=== PATIENT | female | born 1995 | race Caucasian/White ===

== ENCOUNTER 2017-04-20 15:46 | Emergency (ER) | payer OTHER ==
[2017-04-20 15:53] VITALS: BP 124/74; PULSE 104; TEMP 99.3; BMI 33.3
--- NOTE | 2017-04-20 15:53 | PDOC ---
Rapid Medical Evaluation Chief Complaint: Pain, Acute Medical Evaluation: Allergies Allergy/AdvReac Type Severity Reaction Status Date / Time No Known Allergies Allergy Verified 04/20/17 15:50 04/20/17 15:51 I have performed a brief in-person evaluation of this patient. The patient presents with a chief complaint of: n/v/d since yesterday Pertinent physical exam findings:Tachy to 104 w/ low grade fever of 99.3 w/ + ttp to upper abdomen I have ordered the following:cbc/chem/lipase/ua/upreg The patient will proceed to the ED for further evaluation. 04/20/17 15:53 04/20/17 15:54
[2017-04-20 16:22] LABS: BASOPHIL 0.4 % (0-2.0); EOSINOPHIL 0.5 % (0-4.5); MCH 28.5 pg (25.7-33.7); MCHC 32.4 g/dl (32.0-36.0); MEAN CELL VOLUME 87.9 fl (80-96); MEAN PLT VOLUME 10.2 fl (7.5-11.1); NEUTROPHILS 85.8 % (42.8-82.8); PLATELET COUNT 212 K/MM3 (134-434); RDW 15.1 % (11.6-15.6); WHITE BLOOD COUNT 18.7 K/mm3 (4.0-10.0)
[2017-04-20 16:41] LABS: URINE APPEARANCE CLEAR; URINE BILIRUBIN NEGATIVE (NEGATIVE); URINE COLOR YELLOW; URINE GLUCOSE (UA) NEGATIVE (NEGATIVE); URINE KETONE NEGATIVE (NEGATIVE); URINE NITRITE NEGATIVE (NEGATIVE); URINE PROTEIN NEGATIVE (NEGATIVE); URINE UROBILINOGEN 2.0 E.U/dl E.U./dl (0.2-1.0)
[2017-04-20 16:47] LABS: ALBUMIN 3.4 g/dl (3.4-5.0); ALK PHOS 88 U/L (45-117); ANION GAP 7 (8-16); BILIRUBIN,TOTAL 0.5 mg/dL (0.2-1.0); CALCIUM 9.2 mg/dL (8.5-10.1); CO2 27 mmol/L (21-32); CREATININE 0.7 mg/dL (0.55-1.02); GLUCOSE,RANDOM 91 mg/dL (74-106); SGOT/AST 13 U/L (15-37); SGPT/ALT 17 U/L (12-78)
[2017-04-20 17:08] LABS: URINE BLOOD 2+ (NEGATIVE); URINE LEUK ESTERASE 1+ (NEGATIVE)
[2017-04-20 17:10] LABS: URINE MUCUS FEW; URINE RBC 1 /hpf (0-3); URINE WBC 8 /hpf (3-5)
[2017-04-20] MEDS ORDERED: ONDANSETRON 4 MG/2 ML VIAL IVPB ONE (20:01)
[2017-04-20] MEDS ORDERED: SODIUM CHLORIDE 1,000 ML IV STA ×2 (20:01→21:49)
[2017-04-20] MEDS ORDERED: ONDANSETRON 4 MG/2 ML VIAL ONE (20:13)
--- NOTE | 2017-04-20 21:28 | PDOC ---
History of Present Illness - General Chief Complaint: Pain, Acute Stated Complaint: ABD/ CHEST PAIN Time Seen by Provider: 04/20/17 15:55 History Source: Patient Exam Limitations: No Limitations - History of Present Illness Travel History: No Initial Comments: 04/20/17 21:23 21yo Female patient w/ PmHx: Asthma presents to ED c/o persistent vomiting since yesterday. Patient states she has been unable to tolerate po fluids/ solids. Patient also has c/o chest pain/ back pain/ lower abdominal, sore throat , bilateral ear pain with low grade temp (100.3). LNMP: Unknown. Reports IUD- non hormonal. She denies any other complaints at this time. Timing/Duration: reports: getting worse Quality: reports: moderate Abdominal Pain Onset Location: reports: RLQ, LLQ, epigastric Pain Radiation: reports: back Activities at Onset: reports: none Treatment Prior to Arrive: worse with: analgesics, antacids, cold pack, heat, laxative, enema, other Aggravating Factors: worse with: None, Defecation, Eating, Emotional upset, Exertion, [place], Movement, Voiding, Change in position Alleviating Factors: worse with: None, Belching, Shallow Breathing, Defecation, Eating, Holding Breath, Passing Gas, Change in Position, Rest, Voiding, Vomiting Past History - Travel Traveled outside of the country in the last 30 days: No Close contact w/someone who was outside of country & ill: No - Past Medical History Allergies/Adverse Reactions: Allergies Allergy/AdvReac Type Severity Reaction Status Date / Time No Known Allergies Allergy Verified 04/20/17 15:50 Home Medications: Ambulatory Orders NK [No Known Home Medication] 08/16/16 Asthma: Yes Cancer: No Cardiac Disorders: No Diabetes: No HTN: No Suicide Attempt (Hx): No Seizures: No Thyroid Disease: No - Reproductive History (#): 1 Para: 0 Therapeutic (s) & number: No Spontaneous : 0 - Immunization History Immunization Up to Date: Yes - Psycho/Social/Smoking Cessation Hx Anxiety: No Suicidal Ideation: No Smoking Status: No Smoking History: Never smoked Have you smoked in the past 12 months: No Number of Cigarettes Smoked Daily: 0 Information on smoking cessation initiated: No Hx Alcohol Use: No Drug/Substance Use Hx: No Substance Use Type: None Hx Substance Use Treatment: No Abd/GI Specific PMHX - Complaint Specific PMHX Colitis: No Diverticulitis: No Gall Bladder Disease: No GERD: No Hepatitis: No Irritable Bowel Synd (IBS): No Pancreatitis: No GI Ulcer Disease: No Review of Systems - Review of Systems Able to Perform ROS?: Yes Is the patient limited Palestinian proficient: No Constitutional: Yes: Fever. No: Chills HEENTM: Yes: Ear Pain, Throat Pain. No: Throat Swelling, Mouth Pain, Difficulty Swallowing, Mouth Swelling Respiratory: Yes: Cough. No: Shortness of Breath, Wheezing Cardiac (ROS): No: Chest Pain, Palpitations, Syncope, Chest Tightness ABD/GI: Yes: Diarrhea, Nausea, Poor Fluid Intake, Vomiting, Abdominal cramping ( RLQ-LLQ). No: Difficulty Swallowing, Poor Appetite, Rectal Bleeding : No: Burning, Dysuria, Flank Pain, Hematuria Musculoskeletal: Yes: Back Pain Integumentary: No: Bruising, Erythema, Rash Neurological: No: Headache, Seizure, Ataxia, Dizziness All Other Systems: Reviewed and Negative *Physical Exam - Vital Signs Last Vital Signs Temp Pulse Resp BP Pulse Ox 99.3 F 104 H 18 124/74 100 04/20/17 15:51 04/20/17 15:51 04/20/17 15:51 04/20/17 15:51 04/20/17 15:51 - Physical Exam General Appearance: Yes: Nourished, Appropriately Dressed. No: Apparent Distress, Mild Distress, Moderate Distress, Severe Distress HEENT: positive: EOMI, DOMINIC, Normal ENT Inspection, Normal Voice, Symmetrical, TMs Normal, Pharyngeal Erythema (Injected), Tonsillar Erythema (Severe). negative: Pharynx Normal, Tonsillar Exudate, Nasal Congestion, Rhinorrhea, Sinus Tenderness, TM Bulging, TM Dull, TM Erythema, Excessive drooling Neck: positive: Trachea midline, Normal Thyroid, Supple. negative: Decreased range of motion, Stridor, Lymphadenopathy (R), Lymphadenopathy (L), Rigidity Respiratory/Chest: positive: Lungs Clear, Normal Breath Sounds. negative: Chest Tender, Respiratory Distress, Accessory Muscle Use, Labored Respiration, Rapid RR, Stridor, Wheezing Cardiovascular: positive: Regular Rhythm, Regular Rate Gastrointestinal/Abdominal: positive: Normal Bowel Sounds, Tender (Epigastric), Soft, Tenderness. negative: Distended, Guarding, Rebound Musculoskeletal: positive: Normal Inspection. negative: CVA Tenderness, Vertebral Tenderness Extremity: positive: Normal Capillary Refill, Normal Inspection, Normal Range of Motion. 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 II-XII NML intact, Fully Oriented, Alert, Normal Mood/ Affect, Normal Response, Motor Strength /5 ED Treatment Course - LABORATORY CBC & Chemistry Diagram: 04/20/17 16:00 04/20/17 16:00 - ADDITIONAL ORDERS Additional order review: Laboratory Results 04/20/17 04/20/17 16:00 16:00 Sodium 137 Potassium 4.5 Chloride 103 Carbon Dioxide 27 Anion Gap 7 L BUN 8 D Creatinine 0.7 D Creat Clearance w eGFR > 60 Random Glucose 91 D Calcium 9.2 Total Bilirubin 0.5 AST 13 L ALT 17 D Alkaline Phosphatase 88 D Total Protein 8.0 Albumin 3.4 Lipase 93 Urine Color Yellow Urine Appearance Clear Urine pH 7.0 D Ur Specific [place] 1.020 Urine Protein Negative Urine Glucose (UA) Negative Urine Ketones Negative Urine Blood 2+ H Urine Nitrite Negative Urine Bilirubin Negative Urine Urobilinogen 2.0 e.u/dl H Ur Leukocyte Esterase 1+ H D Urine RBC 1 Urine WBC 8 Ur Epithelial Cells Few Urine Mucus Few Urine HCG, Qual Negative 04/20/17 16:00 RBC 4.72 D MCV 87.9 MCHC 32.4 RDW 15.1 D MPV 10.2 Neutrophils % 85.8 H D Lymphocytes % 7.3 L D Monocytes % 6.0 Eosinophils % 0.5 Basophils % 0.4 - RADIOLOGY Radiology Studies Ordered: Category Date Time Status ABDOMEN & PELVIS CT WITH CONTR [CT] Stat CT Scan 04/20/17 20:01 Taken ABDOMEN US -LIMITED [US] Stat Ultrasound 04/20/17 20:01 Ordered - Medications Given in the ED: ED Medications Discontinued Medications Generic Name Dose Route Start Last Admin Trade Name Freq PRN Reason Stop Dose Admin Sodium Chloride 1,000 mls @ 1,000 mls/hr 04/20/17 20:01 04/20/17 20:28 Normal Saline - IV 04/20/17 21:00 1,000 mls/hr ASDIR STA Administration Ondansetron HCl 8 mg 04/20/17 20:01 04/20/17 20:25 Zofran Injection IVPB 04/20/17 20:02 8 mg ONCE ONE Administration Medical Decision Making - Medical Decision Making 04/20/17 23:40 + Strep, WBC 18 *DC/Admit/Observation/Transfer Diagnosis at time of Disposition: Strep pharyngitis - Discharge Dispostion Disposition: HOME Condition at time of disposition: Improved Admit: No - Patient Instructions Printed Discharge Instructions: DI for Strep Throat Additional Instructions: FOLLOW UP WITH YOUR DOCTOR NEEDED. CALL TO SCHEDULE APPOINTMENT. TYLENOL OR MOTRIN FOR PAIN NEEDED. Print Language: [place] ISLANDER - Post Discharge Activity Work/School Note: Back to Work
--- NOTE | 2017-04-20 21:31 | PDOC ---
*Physical Exam - Vital Signs Last Vital Signs Temp Pulse Resp BP Pulse Ox 99.3 F 104 H 18 124/74 100 04/20/17 15:51 04/20/17 15:51 04/20/17 15:51 04/20/17 15:51 04/20/17 15:51 ED Treatment Course - LABORATORY CBC & Chemistry Diagram: 04/20/17 16:00 04/20/17 16:00 - ADDITIONAL ORDERS Additional order review: Laboratory Results 04/20/17 04/20/17 16:00 16:00 Sodium 137 Potassium 4.5 Chloride 103 Carbon Dioxide 27 Anion Gap 7 L BUN 8 D Creatinine 0.7 D Creat Clearance w eGFR > 60 Random Glucose 91 D Calcium 9.2 Total Bilirubin 0.5 AST 13 L ALT 17 D Alkaline Phosphatase 88 D Total Protein 8.0 Albumin 3.4 Lipase 93 Urine Color Yellow Urine Appearance Clear Urine pH 7.0 D Ur Specific [place] 1.020 Urine Protein Negative Urine Glucose (UA) Negative Urine Ketones Negative Urine Blood 2+ H Urine Nitrite Negative Urine Bilirubin Negative Urine Urobilinogen 2.0 e.u/dl H Ur Leukocyte Esterase 1+ H D Urine RBC 1 Urine WBC 8 Ur Epithelial Cells Few Urine Mucus Few Urine HCG, Qual Negative 04/20/17 20:30 Group A Strep Rapid Antigen - Final Throat 04/20/17 16:00 RBC 4.72 D MCV 87.9 MCHC 32.4 RDW 15.1 D MPV 10.2 Neutrophils % 85.8 H D Lymphocytes % 7.3 L D Monocytes % 6.0 Eosinophils % 0.5 Basophils % 0.4 - Medications Given in the ED: ED Medications Discontinued Medications Generic Name Dose Route Start Last Admin Trade Name Tayoq PRN Reason Stop Dose Admin Sodium Chloride 1,000 mls @ 1,000 mls/hr 04/20/17 20:01 04/20/17 20:28 Normal Saline - IV 04/20/17 21:00 1,000 mls/hr ASDIR STA Administration Ondansetron HCl 8 mg 04/20/17 20:01 04/20/17 20:25 Zofran Injection IVPB 04/20/17 20:02 8 mg ONCE ONE Administration Medical Decision Making - Medical Decision Making 04/20/17 21:30 agree with care from JELENA Crisostomo *DC/Admit/Observation/Transfer Diagnosis at time of Disposition: Strep pharyngitis - Referrals Referrals: Devonte Browning MD [Primary Care Provider] - - Patient Instructions Printed Discharge Instructions: DI for Strep Throat Additional Instructions: FOLLOW UP WITH YOUR DOCTOR NEEDED. CALL TO SCHEDULE APPOINTMENT. TYLENOL OR MOTRIN FOR PAIN NEEDED. Print Language: VIET[place]ESE - Post Discharge Activity Work/School Note: Back to Work
[2017-04-20] MEDS ORDERED: ACETAMINOPHEN 325 MG TABLET (FP) ONE (22:07)
[2017-04-20] MEDS ORDERED: ACETAMINOPHEN 325 MG TABLET (FP) PO ONE (22:09)
[2017-04-20] MEDS ORDERED: PENICILLIN V POTASSIUM 500 MG TABLET PO ONE (23:39)
[2017-04-20] MEDS ORDERED: KETOROLAC TROMETHAMINE 30 MG/1 ML VIAL IVPUSH ONE (23:39)
[2017-04-20] MEDS ORDERED: PENICILLIN G BENZATHINE 1,200,000 UNIT/2 ML PFS IM ONE (23:43)
[2017-04-21] MEDS ORDERED: KETOROLAC TROMETHAMINE 30 MG/1 ML VIAL ONE (00:04)
[2017-04-21] MEDS ORDERED: PENICILLIN G BENZATHINE 2,400,000 UNIT/4 ML PFS ONE (00:05)
== END 2017-04-21 01:20 | disposition home or self-care (01) ==
LOC: JER 15:46
PROC: 3E0337Z Introduction of Electrolytic and Water Balance Substance into Peripheral Vein, Percutaneous Approach (ICD-10-PCS; principal; 2017-04-20)
PROC: 3E033GC Introduction of Other Therapeutic Substance into Peripheral Vein, Percutaneous Approach (ICD-10-PCS; 2017-04-20)
PROC: 3E0333Z Introduction of Anti-inflammatory into Peripheral Vein, Percutaneous Approach (ICD-10-PCS; 2017-04-20)
PROC: 3E02329 Introduction of Other Anti-infective into Muscle, Percutaneous Approach (ICD-10-PCS; 2017-04-20)
DX: J02.0 Streptococcal pharyngitis (principal); B95.0 Streptococcus, group A, as the cause of diseases classified elsewhere
CPT/HCPCS: 36415; 74177-TC; 76705-TC; 80053; 81003; 81015; 83690; 84703; 85025; 87070; 87077; 87430; 96361; 96372; 96374; 96375; 99283-25

== ENCOUNTER 2019-01-08 05:58 | Emergency (ER) | payer OTHER ==
[2019-01-08 06:26] VITALS: BMI 33.3
[2019-01-08] MEDS ORDERED: SODIUM CHLORIDE 1,000 ML IV STA ×2 (07:24→09:02)
[2019-01-08] MEDS ORDERED: ACETAMINOPHEN 1000 MG/100 ML VIAL (NON FORMULARY) IVPB ONE (07:24)
[2019-01-08] MEDS ORDERED: ONDANSETRON 4 MG/2 ML VIAL IVPUSH ONE (07:24)
--- NOTE | 2019-01-08 07:24 | PDOC ---
History of Present Illness - General Chief Complaint: Nausea/Vomiting Stated Complaint: N/V, ABD PAIN, 7 WKS Time Seen by Provider: 01/08/19 07:04 History Source: Patient Exam Limitations: No Limitations - History of Present Illness Initial Comments: 01/08/19 10:57 Patient is a 52-year-old female currently 7 weeks with past medical history of asthma, who presents to the emergency department today for 4 days of nausea, vomiting and diarrhea. Patient states that she also has lower abdominal crampin. She states that her son had similar symptoms last week and also had 4 days of nausea vomiting and diarrhea. Her mother is here as well, sick with similar symptoms. Denies fevers, chills, earache, sore throat, shortness of breath, difficulty breathing, cough, constipation, frequency, urgency and hematuria, vaginal bleeding. Past History - Travel Traveled outside of the country in the last 30 days: No Close contact w/someone who was outside of country & ill: No - Past Medical History Allergies/Adverse Reactions: Allergies Allergy/AdvReac Type Severity Reaction Status Date / Time No Known Allergies Allergy Verified 01/08/19 06:24 Home Medications: Ambulatory Orders NK [No Known Home Medication] 08/16/16 Asthma: Yes Cancer: No Cardiac Disorders: No Diabetes: No HTN: No Seizures: No Thyroid Disease: No - Reproductive History (#): 1 Para: 0 Therapeutic (s) & number: No Spontaneous : 0 - Immunization History Immunization Up to Date: Yes - Suicide/Smoking/Psychosocial Hx Smoking Status: No Smoking History: Never smoked Have you smoked in the past 12 months: No Number of Cigarettes Smoked Daily: 0 Information on smoking cessation initiated: No Hx Alcohol Use: No Drug/Substance Use Hx: No Substance Use Type: None Hx Substance Use Treatment: No Review of Systems - Review of Systems Able to Perform ROS?: Yes Comments:: 01/08/19 10:58 CONSTITUTIONAL: Absent: fever, chills, diaphoresis, generalized weakness, malaise, loss of appetite HEENT: Absent: rhinorrhea, nasal congestion, throat pain, throat swelling, difficulty swallowing, mouth swelling, ear pain, eye pain, visual Changes CARDIOVASCULAR: Absent: chest pain, loss of consciousness, palpitations, irregular heart rate, peripheral edema RESPIRATORY: Absent: cough, shortness of breath, dyspnea with exertion, orthopnea, wheezing, stridor, hemoptysis GASTROINTESTINAL: Present: abdominal cramping, nausea, diarrhea, vomiting Absent: abdominal distension, constipation, melena, hematochezia GENITOURINARY: Absent: dysuria, frequency, urgency, hesitancy, hematuria, flank pain, genital pain MUSCULOSKELETAL: Absent: myalgia, arthralgia, joint swelling SKIN: Absent: rash, itching, pallor HEMATOLOGIC/IMMUNOLOGIC: Absent: easy bleeding, easy bruising, lymphadenopathy, frequent infections ENDOCRINE: Absent: unexplained weight gain, unexplained weight loss, heat intolerance, cold intolerance NEUROLOGIC: Absent: headache, focal weakness or paresthesias, dizziness, unsteady gait, seizure, mental status changes, bladder or bowel incontinence PSYCHIATRIC: Absent: anxiety, depression, suicidal or homicidal ideation, hallucinations. Is the patient limited Wolof proficient: No *Physical Exam - Vital Signs Last Vital Signs Temp Pulse Resp BP Pulse Ox 98.6 F 70 18 115/63 99 01/08/19 06:25 01/08/19 06:25 01/08/19 06:25 01/08/19 06:25 01/08/19 06:25 - Physical Exam Comments: 01/08/19 11:00 GENERAL: Well developed, well nourished. Awake and alert. No acute distress. HEENT: Normocephalic, atraumatic. PERRLA, EOMI. No conjunctival pallor. Sclera are non- icteric. Moist mucous membranes. Oropharynx is clear. NECK: Supple. Full ROM. No JVD. Carotid pulses 2+ and symmetric, without bruits. No thyromegaly. No lymphadenopathy. CARDIOVASCULAR: Regular rate and rhythm. No murmurs, rubs, or gallops. Distal pulses are 2+ and symmetric. PULMONARY: No evidence of respiratory distress. Lungs clear to auscultation bilaterally. No wheezing, rales or rhonchi. ABDOMINAL: Discomfort to LLQ, suprapubic region. Soft. Non-tender. Non-distended. No rebound or guarding. No organomegaly. Normoactive bowel sounds. MUSCULOSKELETAL Normal range of motion at all joints. No bony deformities or tenderness. No CVA tenderness. EXTREMITIES: No cyanosis. No clubbing. No edema. No calf tenderness. SKIN: Warm and dry. Normal capillary refill. No rashes. No jaundice. NEUROLOGICAL: Alert, awake, appropriate. Cranial nerves 2-12 intact. No deficits to light touch and temperature in face, upper extremities and lower extremities. No motor deficits in the in face, upper extremities and lower extremities. Normoreflexic in the upper and lower extremities. Normal speech. Toes are down- going bilaterally. Gait is normal without ataxia. PSYCHIATRIC: Cooperative. Good eye contact. Appropriate mood and affect. Moderate Sedation - Procedure Monitoring Vital Signs: Procedure Monitoring Vital Signs Temperature 98.6 F 01/08/19 06:25 Pulse Rate 70 01/08/19 06:25 Respiratory Rate 18 01/08/19 06:25 Blood Pressure 115/63 01/08/19 06:25 O2 Sat by Pulse Oximetry (%) 99 01/08/19 06:25 ED Treatment Course - LABORATORY CBC & Chemistry Diagram: 01/08/19 07:31 01/08/19 07:31 Medical Decision Making - Medical Decision Making 01/08/19 11:14 Patient is a 23-year-old female currently 7 weeks who presents to the emergency department with nausea, vomiting and diarrhea for the last 4 days. Patient's family members with similar symptoms. On exam patient with lower abdominal cramping. Labs, urine, transvaginal ultrasound ordered. Medication for nausea and vomiting and IV fluids placed. Urine is negative for infection. Repeat abdominal exam with no pain. Transvaginal ultrasound shows an intrauterine with a heart rate of 144. Patient with a simple cyst on the right ovary. Also with a subchorionic hemorrhage. Patient made aware of findings. Patient reports feeling much better after medication and fluids. We'll discharge home with OB follow-up. I discussed the physical exam findings, ancillary test results and final diagnoses with the patient. I answered all of the patient's questions. The patient was satisfied with the care received and felt comfortable with the discharge plan and treatment plan. The Patient agrees to follow up with the primary care physician/specialist within 24-72 hours. Return precautions were given. *DC/Admit/Observation/Transfer Diagnosis at time of Disposition: Nausea & vomiting Qualifiers: Vomiting type: unspecified Vomiting Intractability: non-intractable Qualified Code(s): R11.2 - Nausea with vomiting, unspecified - Discharge Dispostion Disposition: HOME Condition at time of disposition: Stable Decision to Admit order: No - Referrals Referrals: Clau Bergman MD [Primary Care Provider] - - Patient Instructions Printed Discharge Instructions: DI for Vomiting -- Adult Additional Instructions: You were evaluated for her nausea and vomiting today. Your lab work was normal. Your ultrasound showed that the baby has heart rate 144. Avoid all dairy products until 48 hours after the vomiting/diarrhea has resolved. Eat a bland diet including apple sauce, toast, bananas, and plain rice Drink plenty of fluids including pedialyte, watered down juices and water Continue your antiemetic as previous prescribed Follow up with your primary care doctor this week Return to the ED if you develop fevers, abdominal pain, worsening vomiting, or if you have any changes in your symptoms. - Post Discharge Activity Forms/Work/School Notes: Back to Work
[2019-01-08] MEDS ORDERED: ACETAMINOPHEN INJECTION 100 ML IVPB ONE (07:48)
[2019-01-08] MEDS ORDERED: ONDANSETRON 4 MG/2 ML VIAL ONE (07:48)
[2019-01-08 08:37] LABS: BASO % 0.5 % (0-2.0); EOS % 2.3 % (0-4.5); HEMATOCRIT 39.4 % (32.4-45.2); HEMOGLOBIN 13.5 GM/dL (10.7-15.3); LYMPH % 23.1 % (8-40); MCH 30.4 pg (25.7-33.7); MCHC 34.2 g/dl (32.0-36.0); MEAN CELL VOLUME 88.9 fl (80-96); MEAN PLT VOLUME 10.2 fl (7.5-11.1); MONO % 7.6 % (3.8-10.2); NEUT % 66.5 % (42.8-82.8); PLATELET COUNT 202 K/MM3 (134-434); RBC 4.43 M/mm3 (3.60-5.2); RDW 13.9 % (11.6-15.6); WHITE BLOOD COUNT 7.3 K/mm3 (4.0-10.0)
[2019-01-08 08:44] LABS: ALBUMIN 3.6 g/dl (3.4-5.0); ALK PHOS 80 U/L (45-117); ANION GAP 7 MMOL/L (8-16); BILIRUBIN,TOTAL 0.4 mg/dL (0.2-1); BLOOD UREA NITROGEN 7 mg/dL (7-18); CALCIUM 9.4 mg/dL (8.5-10.1); CHLORIDE 105 mmol/L (98-107); CO2 25 mmol/L (21-32); CREATININE 0.7 mg/dL (0.55-1.3); GLUCOSE,RANDOM 85 mg/dL (74-106); POTASSIUM 4.1 mmol/L (3.5-5.1); SGOT/AST 12 U/L (15-37); SGPT/ALT 19 U/L (13-61); SODIUM 137 mmol/L (136-145); TOT PROT 7.5 g/dl (6.4-8.2)
[2019-01-08 10:13] LABS: PH,URINE 5.5 (5.0-8.0); URINE APPEARANCE Clear; URINE BILIRUBIN 1+ (<2.0 mg/dL); URINE COLOR Yellow; URINE GLUCOSE (UA) Negative (NEGATIVE); URINE KETONE 3+ (NEGATIVE); URINE LEUK ESTERASE TRACE (NEGATIVE); URINE NITRITE Negative (NEGATIVE); URINE PROTEIN Trace (NEGATIVE); URINE UROBILINOGEN 0.2 mg/dL (0.2-1.0)
[2019-01-08] MEDS ORDERED: METOCLOPRAMIDE HCL INJECTION 10 MG/2 ML VIAL IVPB ONE (10:32)
[2019-01-08] MEDS ORDERED: METOCLOPRAMIDE HCL INJECTION 10 MG/2 ML VIAL ONE (10:35)
[2019-01-08 11:12] VITALS: BP 108/56; PULSE 88; TEMP 99.2
== END 2019-01-08 11:21 | disposition home or self-care (01) ==
LOC: JER 05:58
PROC: 3E0337Z Introduction of Electrolytic and Water Balance Substance into Peripheral Vein, Percutaneous Approach (ICD-10-PCS; principal; 2019-01-08)
PROC: 3E033GC Introduction of Other Therapeutic Substance into Peripheral Vein, Percutaneous Approach (ICD-10-PCS; 2019-01-08)
PROC: 3E033GC Introduction of Other Therapeutic Substance into Peripheral Vein, Percutaneous Approach (ICD-10-PCS; 2019-01-08)
DX: O26.891 Other specified pregnancy related conditions, first trimester (principal); R11.2 Nausea with vomiting, unspecified; O34.81 Maternal care for other abnormalities of pelvic organs, first trimester; N83.291 Other ovarian cyst, right side; Z3A.01 Less than 8 weeks gestation of pregnancy
CPT/HCPCS: 36415; 76801-TC; 80053; 81003; 83690; 84702; 85025; 87086; 96361; 96374; 96375; 99284-25; J0131; J7030

== ENCOUNTER 2019-08-14 02:35 | Inpatient (IN) | payer OTHER ==
[2019-08-14] MEDS ORDERED: ELECTROLYTE-148 SOLN 1,000 ML IV SCH (04:15)
--- NOTE | 2019-08-14 04:59 | HP ---
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: Alzheimer's, CVA, Dementia, Migraine, Multiple Sclerosis, Peripheral Neuropathy, Parkinson's, Seizure, Syncope, TIA, Vertigo, Other Pulmonary: No: Asthma, Bronchitis, Cancer, COPD, O2 Dependent, Pneumonia, Previously Intubated, Pulmonary Embolus, Pulmonary Fibrosis, Sleep Apnea, Other Gastrointestinal: No: Ascites, Cancer, Constipation, Crohn's Disease, Diverticulitis, Diverticulosis, Esophageal Varices, Gastritis, GERD, GI Bleed, Hemorrhoids, Hiatal Hernia, Inflamatory Bowel Disease, Irritable Bowel Disease, Pancreatitis, Peptic Ulcer Disease, Ulcerative Colitis, Other Hepatobiliary: No: Cirrhosis, Cholelithiasis, Cholecystitis, Choledocholithiasis , Hepatitis A, Hepatitis B, Hepatitis C, Other Renal/: No: Renal Failure, Renal Inusuff, BPH, Cancer, Hematuria, Hemodialysis , Neurogenic Bladder, Renal Calculi, UTI, Other Reproductive: No: Ectopic , Endometriosis, Fibroids, PID, Polycystic Ovary Syndrome, Postmenopausal, Other ...: 3 ...Para: 2 ...Term: 2 ... Weeks Gestation by Dates: 38 ...EDC by Dates: 08/27/19 ...EDC by Sono: 08/27/19 Heme/Onc: No: Anemia, B12 Deficiency, Bleeding Disorder, Cancer, Current Chemotherapy, Current Radiation Therapy, Hemochromatosis, Hypercoaguable State, Myeloproliferative Synd, Sickle Cell Disease, Sickle Cell Trait, Thrombocytopenia, Other Psych: No: Addictions, Anxiety, Bipolar, Depression, Panic, Psychosis, Schizophrenia, Other Musculoskeletal: No: Bursitis, Chronic low back pain, Hemiparesis, Hemiplegia, Osteoarthritis, Paraplegia, Other Rheumatology: No: Fibromyalgia, Gout, Lupus, Rheumatoid Arthritis, Sarcoidosis, Vasculitis, Other ENT: No: Allergic Rhinitis, Sinusitis, Other Endocrine: No: Mohave's Disease, Madrid's Disease, Diabetes Insipidus, Diabetes Mellitus, Hyperparathyroidism, Hyperthyroidism, Hypothyroidism, Osteopenia, SIADH, Other Dermatology: No: Basal Cell, Cellulitis, Eczema, Melanoma, Psoriasis, Squamous Cell, Other Additional Medical History: HO exposure to TB. Ho autoimmune disease / varnisher seeing - Past Surgical History Past Surgical History: Yes: None Hx Myomectomy: No Hx Transabdominal Cerclage: No - Smoking History Smoking history: Never smoked Have you smoked in the past 12 months: No Aproximately how many cigarettes per day: 0 - Alcohol/Substance Use Hx Alcohol Use: No History of Substance Use: reports: None - Social History Usual Living Arrangement: Yes: With Significant Other History of Recent Travel: No Home Medications - Allergies Allergies/Adverse Reactions: Allergies Allergy/AdvReac Type Severity Reaction Status Date / Time No Known Allergies Allergy Verified 01/08/19 06:24 - Home Medications Home Medications: Ambulatory Orders SYMBICORT 160/4.5mcg - 2 puff IH BID 04/27/19 Review of Systems - Review of Systems Constitutional: reports: No Symptoms Eyes: reports: No Symptoms HENT: reports: No Symptoms Neck: reports: No Symptoms Cardiovascular: reports: No Symptoms Respiratory: reports: No Symptoms Gastrointestinal: reports: No Symptoms Genitourinary: reports: No Symptoms Breasts: reports: No Symptoms Reported Musculoskeletal: reports: No Symptoms Integumentary: reports: No Symptoms Neurological: reports: No Symptoms Endocrine: reports: No Symptoms Hematology/Lymphatic: reports: No Symptoms Psychiatric: reports: No Symptoms Physical Exam - Maternity Constitutional: Yes: Well Nourished Eyes: Yes: WNL HENT: Yes: WNL Neck: Yes: WNL Cardiovascular: Yes: WNL Lungs: Clear to auscultation Breast(s): Yes: WNL - Abdominal Exam/OB Fundal Height: 40 Number of Fetuses: Single Presentation: Vertex Contractions: Yes Regularity: Irregular Intensity: Moderate (c/o great deal of pain with FM) - Vaginal Exam/OB Vaginal Bleediing: No Speculum Exam: No Dilatation (cm): 3 Effacement (%): 90 Amniotic Membrane Status: Intact Presentation: Vertex/Position Station: -1 - Physical Exam Musculoskeletal: Yes: WNL Extremities: Yes: WNL Edema: Yes Edema: LUE: Trace, RUE: Trace, LLE: Trace, RLE: Trace Integumentary: Yes: WNL Deep Tendon Reflex Grade: Normal +2 ...Motor Strength: WNL Psychiatric: Yes: WNL Problem List - Problems (1) Labor abnormality, antepartum Code(s): O62.9 - ABNORMALITY OF FORCES OF LABOR, UNSPECIFIED (2) Irregular uterine contractions Code(s): O62.2 - OTHER UTERINE INERTIA (3) Abdominal pain affecting , antepartum Code(s): O26.899 - OTH RELATED CONDITIONS, UNSPECIFIED TRIMESTER; R10.9 - UNSPECIFIED ABDOMINAL PAIN Assessment/Plan Asst/Plan: Multipara, 3rd baby in labor. In pain, restless. Irregular ctx. FH reactive. Admit. Stadol 2mg for pain. Reexamine, poss AROM.
[2019-08-14] MEDS ORDERED: BUTORPHANOL TARTRATE 1 MG/ML VIAL ONE ×2 (05:02)
[2019-08-14] MEDS ORDERED: PROMETHAZINE HCL 25 MG/1 ML VIAL ONE (05:03)
[2019-08-14] MEDS ORDERED: BUTORPHANOL TARTRATE 1 MG/ML VIAL IVPB ONE (05:22)
--- NOTE | 2019-08-14 05:43 | PN ---
Progress Note, Labor Vaginal Exam #2 Labor Exam Date: 08/14/19 Labor Exam Time: 05:35 Dilatation: 7 Effacement (%): 100 Amniotic Membrane Status: Intact Presentation: Vertex/Position Station: 0 (AROM, minimal amnt. of fluid. FH reactive. Better after Stadol.)
[2019-08-14] MEDS ORDERED: OXYTOCIN 20 UNITS in 0.9% NS 20 UNIT/1,000 ML INFUS.BAG IV ONE ×2 (05:49→07:53)
[2019-08-14] MEDS ORDERED: LIDOCAINE HCL 1% PRESERVATIVE FREE - 30ML VIAL ONE (05:50)
[2019-08-14 05:55] LABS: BASO % 0.4 % (0-2.0); EOS % 1.2 % (0-4.5); HEMATOCRIT 32.9 % (32.4-45.2); HEMOGLOBIN 10.7 GM/dL (10.7-15.3); LYMPH % 18.4 % (8-40); MCH 25.9 pg (25.7-33.7); MCHC 32.6 g/dl (32.0-36.0); MEAN CELL VOLUME 79.6 fl (80-96); MEAN PLT VOLUME 9.9 fl (7.5-11.1); MONO % 6.9 % (3.8-10.2); NEUT % 73.1 % (42.8-82.8); PLATELET COUNT 228 K/MM3 (134-434); RBC 4.13 M/mm3 (3.60-5.2); RDW 15.5 % (11.6-15.6); WHITE BLOOD COUNT 11.6 K/mm3 (4.0-10.0)
--- NOTE | 2019-08-14 06:14 | PN ---
Progress Note, Labor Vaginal Exam #3 Labor Exam Date: 08/14/19 Labor Exam Time: 05:49 Dilatation: 10 Station: +1 (OP Fully, pushing. FH cat 1.)
[2019-08-14 06:19] LABS: BLOOD UREA NITROGEN 3.8 mg/dL (7-18); CALCIUM 8.7 mg/dL (8.5-10.1); CREATININE 0.6 mg/dL (0.55-1.3); POTASSIUM 3.6 mmol/L (3.5-5.1)
--- NOTE | 2019-08-14 06:20 | PN ---
Delivery - Delivery Vaginal Delivery: No Problems Episiotomy/Laceration: None EBL (cc): 450 Delivery, Single - Stages of Labor Date of Delivery: 08/14/19 Time of Delivery: 05:49 Date Placenta Delivered: 08/14/19 Time Placenta Delivered: 05:59 Placenta: Yes: Spontaneous, Abnormal Configuration (marginal insertion.) - Condition of Infant Gender: Male Position: OP (Delivered OP. No epis., lacerations. Delayed cord clamping. Cord divided by FoB. Post placenta increased bleeding. Uterus massaged, bladder straight cath, Methergine IM. Improved. Baby is nursing.) - [place] Feeding Plan Initial Plan: Exclusive throughout hospitalization Benefits of Exclusively reinforced: Yes Remarks - Remarks Remarks: Active labor. NVSD, OP. Apgars 9 and 9. Delayed cord clamping. No lacerations, no epis. Placenta spont., intact. Increased bleeding after placenta. Massaged, straight cath, Methergine im. Baby boy. The couple requests circumcision. All's well. Happy family.
[2019-08-14] MEDS ORDERED: BENZOCAINE 20% 57 GM BOTTLE TP PRN (06:28)
[2019-08-14] MEDS ORDERED: BENZOCAINE 28 GM HEMORRHOIDAL OINTMENT TP PRN (06:28)
[2019-08-14] MEDS ORDERED: WITCH HAZEL 50% (TUCKS) 40 PAD/JAR PAD TP PRN (06:28)
[2019-08-14] MEDS ORDERED: BISACODYL 10 MG SUPP.RECT RC PRN (06:28)
[2019-08-14] MEDS ORDERED: METHYLERGONOVINE MALEATE 0.2 MG/1 ML AMP IM PRN (06:28)
[2019-08-14 06:42] VITALS: BMI 32.1
[2019-08-14] MEDS ORDERED: IBUPROFEN 600 MG TABLET (FP) PO ONE (06:53)
[2019-08-14] MEDS ORDERED: ACETAMINOPHEN 325 MG TABLET (FP) ONE (06:53)
[2019-08-14] MEDS: IBUPROFEN 600 MG TABLET (FP) PO PRN ×3 (06:55→18:51)
[2019-08-14] MEDS: ACETAMINOPHEN 325 MG TABLET (FP) PO PRN ×3 (06:55→18:51)
[2019-08-14] MEDS ORDERED: OXYTOCIN 20 UNITS in 0.9% NS 20 UNIT/1,000 ML INFUS.BAG IV SCH (08:45)
[2019-08-14 10:10] LABS: INR 0.98 (0.83-1.09); PROTHROMBIN TIME (PATIENT) 11.6 SEC (9.7-13.0)
[2019-08-14 10:13] LABS: ACTIVATED PTT 26.5 SECONDS (25.2-36.5)
[2019-08-15 08:09] LABS: BASO % 0.4 % (0-2.0); EOS % 1.6 % (0-4.5); HEMATOCRIT 28.2 % (32.4-45.2); HEMOGLOBIN 8.8 GM/dL (10.7-15.3); LYMPH % 22.6 % (8-40); MCH 25.7 pg (25.7-33.7); MCHC 31.4 g/dl (32.0-36.0); MEAN CELL VOLUME 81.9 fl (80-96); MEAN PLT VOLUME 10.4 fl (7.5-11.1); MONO % 6.5 % (3.8-10.2); NEUT % 68.9 % (42.8-82.8); PLATELET COUNT 223 K/MM3 (134-434); RBC 3.44 M/mm3 (3.60-5.2); RDW 15.4 % (11.6-15.6); WHITE BLOOD COUNT 13.6 K/mm3 (4.0-10.0)
--- NOTE | 2019-08-15 09:21 | PN ---
Post Note - Post Date of Delivery: 08/14/19 Vital Signs: Vital Signs - 24 hr 08/14/19 08/14/19 08/14/19 14:00 18:00 21:08 Temperature 98.7 F 98.6 F 98.4 F Pulse Rate 78 80 78 Respiratory 20 20 20 Rate Blood Pressure 112/53 L 120/57 L 114/58 L 08/15/19 08/15/19 00:39 04:52 Temperature 98.6 F 98.4 F Pulse Rate 77 86 Respiratory 20 20 Rate Blood Pressure 101/54 L 104/72 Labs: Laboratory Results - last 24 hr 08/14/19 08/15/19 05:30 07:00 WBC 13.6 H RBC 3.44 L Hgb 8.8 L Hct 28.2 L MCV 81.9 MCH 25.7 MCHC 31.4 L RDW 15.4 Plt Count 223 MPV 10.4 Absolute Neuts (auto) 9.3 H Neutrophils % 68.9 Lymphocytes % 22.6 D Monocytes % 6.5 Eosinophils % 1.6 Basophils % 0.4 Nucleated RBC % 0 PT with INR 11.60 INR 0.98 PTT (Actin FS) 26.5 - Subjective Subjective: No Complaints - Objective Afebrile: Yes Breast: Not engorged Abdomen: Soft Uterus: Fundus firm Vagina: Scant lochia Extremities: Non-tender - Assessment/Plan (1) Vaginal delivery Assessment: S/P Normal Plan: Routine Care
[2019-08-15] MEDS ORDERED: DIPHTH,PERTUSS(ACELL),TET 0.5 ML DISP.SYRIN IM ONE (10:00)
[2019-08-15] MEDS: IBUPROFEN 600 MG TABLET (FP) PO PRN ×2 (11:29→19:19)
[2019-08-15] MEDS: ACETAMINOPHEN 325 MG TABLET (FP) PO PRN ×2 (11:29→19:19)
[2019-08-15] MEDS ORDERED: SENNOSIDES/DOCUSATE COMBO (SENNA PLUS) TABLET (UD) PO PRN (22:00)
[2019-08-16] MEDS: IBUPROFEN 600 MG TABLET (FP) PO PRN (02:21)
[2019-08-16] MEDS: ACETAMINOPHEN 325 MG TABLET (FP) PO PRN (02:21)
--- NOTE | 2019-08-16 10:22 | DS ---
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: Vital Signs Temperature 98.2 F 08/15/19 20:24 Pulse Rate 84 08/15/19 20:24 Respiratory Rate 18 08/15/19 20:24 Blood Pressure 114/56 L 08/15/19 20:24 O2 Sat by Pulse Oximetry (%) Constitutional: Yes: Well Nourished Eyes: Yes: Conjunctiva Clear HENT: Yes: Atraumatic Neck: Yes: Supple Cardiovascular: Yes: Regular Rate and Rhythm Respiratory: Yes: Regular Gastrointestinal: Yes: Normal Bowel Sounds ...Rectal Exam: Yes: WNL Renal/: Yes: WNL Pelvis: Yes: WNL External Genitalia: Yes: Normal Vaginal Exam: Yes: Normal Cervix: Yes: Normal ....Post : Yes: Uterus firm, Moderate lochia serosa Breast(s): Yes: WNL Musculoskeletal: Yes: WNL Extremities: Yes: WNL Neurological: Yes: Alert, Oriented ...Motor Strength: WNL Psychiatric: Yes: Alert, Oriented Labs: CBC, BMP 08/15/19 07:00 08/14/19 05:22 Delivery - Delivery Vaginal Delivery: No Problems Type of Anesthesia: None Episiotomy/Laceration: None EBL (cc): 450 Delivery, Single - Stages of Labor Date 1st Stage Initiatied: 08/14/19 Time 1st Stage Initiated: 05:15 Date 2nd Stage Initiated: 08/14/19 Time 2nd Stage Initiated: 05:49 Date of Delivery: 08/14/19 Time of Delivery: 05:49 Time Placenta Delivered: 05:59 Placenta: Yes: Spontaneous, Abnormal Configuration (marginal insertion.) - 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 No epis., lacerations. Delayed cord clamping. Cord divided by FoB. Post placenta increased bleeding. Uterus massaged, bladder straight cath, Methergine IM. Improved. Baby is nursing.) Total Hours ROM (Hrs/Mins): 22M - 1 Minute Total Score: 9 5 Minutes Total Score: 9 - Feeding Plan Initial Plan: Exclusive throughout hospitalization Benefits of Exclusively reinforced: Yes Discharge Summary Reason For Visit: LABOR Current Active Problems Abdominal pain affecting , antepartum (Acute) Irregular uterine contractions (Acute) Labor abnormality, antepartum (Acute) Procedures: Principal: Normal spontaneous vaginal delivery Hospital Course: Routine care Health Concerns: None Plan of Treatment: Routine care Goals: Resume normal activities in 6 weeks Condition: Good - Instructions Diet, Activity, Other Instructions: Physical activity Resume your normal everyday activity as tolerated no heavy lifting or exercise until seen by your surgeon. You may walk unlimited brayan of and climb stairs. You may resume driving the car when you feel safe and comfortable behind the wheel. No sexual activity as instructed. Wound care If you have a bandage, leave it on, and keep dry for 48-72 hours. After that time discard the outer bandage. If they are tapes on the skin under the out of bandage leave them in place. They will peel off in the next 7 to 10 days. Do Not Peel them off. You may shower the day after surgery. If there are tapes present on the skin, you may shower over them. Diet There are no dietary restrictions. Eat healthy, high-fiber foods. Drink 6 to 8 glasses of liquid each day. This will assist in keeping your bowels are regular. Pain management You may take Tylenol or acetaminophen or Ibuprofen (for example, Motrin, Advil etc.) from my pain prescription medication is ordered should be taken as prescribed for moderate to severe pain. Call MD for any of the following: Severe pain not relieved by medication Fever of 101 or higher Excessive bleeding or drainage on dressing Inability to urinate Referrals: Chantel Alejandre MD [Staff Physician] - - Home Medications Comprehensive Discharge Medication List: Ambulatory Orders SYMBICORT 160/4.5mcg - 2 puff IH BID 04/27/19 Ibuprofen [Motrin -] 600 mg PO TID #21 tablet 08/15/19
[2019-08-16 11:43] VITALS: BP 118/62; PULSE 72; TEMP 98
== END 2019-08-16 11:30 | disposition home or self-care (01) | DRG 560 ==
LOC: JDEL 02:35 → JLDR 04:45 → J3W 08:00
PROVIDERS: ADMIT Obstetrics & Gynecology; ATTEND Obstetrics & Gynecology
PROC: 10E0XZZ Delivery of Products of Conception, External Approach (ICD-10-PCS; principal; 2019-08-14)
DX: O80 Encounter for full-term uncomplicated delivery (principal); Z3A.38 38 weeks gestation of pregnancy; Z37.0 Single live birth
CPT/HCPCS: 36415; 59409; 71046-TC-FY; 80048; 85025; 85610; 85730; 86593; 86850; 86900; 86901; 90715

== ENCOUNTER 2020-07-30 10:45 | Emergency (ER) | payer OTHER ==
[2020-07-30 10:57] VITALS: BMI 31.1
[2020-07-30] MEDS ORDERED: SODIUM CHLORIDE 0.9% 500 ML INFUS.BAG IV ONE (11:46)
[2020-07-30] MEDS ORDERED: ACETAMINOPHEN 1000 MG/100 ML VIAL (NON FORMULARY) IVPB ONE (11:46)
[2020-07-30] MEDS ORDERED: ONDANSETRON 4 MG/2 ML VIAL IVPUSH ONE (11:46)
--- NOTE | 2020-07-30 11:47 | PDOC ---
History of Present Illness <Emerita Buckley - Last Filed: 07/30/20 13:49> - General History Source: Patient Exam Limitations: No Limitations - History of Present Illness Initial Comments: 07/30/20 12:06 25 y.o. F PMHx asthma. Patient presenting due to abdominal pain for 2 days and (+) home test. Patient states she has had 3 episodes of non-bloody emesis yesterday and 3 today. Patient last ate yesterday and has not been able to keep down clears. Patient reports abdominal pain in the lower abdominal that last for a few minutes every hour. Patient reports LMP on 06/17 and has had no vaginal bleeding or discharge. PCP: Dr. Cooper PMHx: Asthma Meds: In Chart Allergies: NKDA Abdominal US: Single, live intrauterine , age 5 weeks and 5 days Dispo: home 07/30/20 13:29 Is this a multiple visit Asthma Patient?: No Timing/Duration: 24 hours Severity: moderate <Howie Hurtado - Last Filed: 07/30/20 13:53> - General Chief Complaint: Pain, Acute Stated Complaint: ABD PAIN/VOMITING Time Seen by Provider: 07/30/20 11:35 Past History <Emerita Buckley - Last Filed: 07/30/20 13:49> - Medical History Asthma: Yes Cancer: No Cardiac Disorders: No COPD: No Diabetes: No HTN: No Seizures: No Thyroid Disease: No - Reproductive History Is Patient Now?: Yes (#): 1 Para: 0 Therapeutic (s) & number: No Spontaneous : 0 - Immunization History Immunization Up to Date: Yes - Psycho-Social/Smoking History Smoking Status: No Smoking History: Never smoked Have you smoked in the past 12 months: No Number of Cigarettes Smoked Daily: 0 - Substance Abuse Hx (Audit-C & DAST Scrn) How often the patient has a drink containing alcohol: Never Score: In Men: 4 or > Positive; In Women: 3 or > Positive: 0 Screen Result (Pos requires Nsg. Audit-10AR): Negative In the last yr the pt used illegal drug/Rx for NonMed reason: No Score: Yes response is considered Positive: 0 Screen Result (Positive result requires Nsg. DAST-10): Negative <Howie Hurtado - Last Filed: 07/30/20 13:53> - Medical History Allergies/Adverse Reactions: Allergies Allergy/AdvReac Type Severity Reaction Status Date / Time No Known Allergies Allergy Verified 07/30/20 10:53 Home Medications: Ambulatory Orders SYMBICORT 160/4.5mcg - 2 puff IH BID 04/27/19 Ibuprofen [Motrin -] 600 mg PO TID #21 tablet 08/15/19 Review of Systems - Review of Systems Able to Perform ROS?: Yes Is the patient limited Belgian proficient: No Constitutional: Yes: Night Sweats. No: Chills, Fever HEENTM: Yes: Blurred Vision. No: Double Vision Respiratory: No: Cough, Shortness of Breath Cardiac (ROS): No: Chest Pain, Lightheadedness ABD/GI: Yes: Nausea, Vomiting. No: Constipated, Diarrhea : No: Burning, Dysuria Musculoskeletal: No: Muscle Pain, Muscle Weakness Integumentary: No: Bruising, Dryness Neurological: Yes: Headache. No: Numbness, Tingling, Dizziness Hematologic/Lymphatic: No: Easy Bleeding, Easy Bruising <Howie Hurtado - Last Filed: 07/30/20 13:53> *Physical Exam - Vital Signs Last Vital Signs Temp Pulse Resp BP Pulse Ox 98.4 F 88 20 118/71 100 07/30/20 10:53 07/30/20 10:53 07/30/20 10:53 07/30/20 10:53 07/30/20 10:53 <Emerita Buckley - Last Filed: 07/30/20 13:49> - Vital Signs Last Vital Signs Temp Pulse Resp BP Pulse Ox 98.4 F 88 20 118/71 100 07/30/20 10:53 07/30/20 10:53 07/30/20 10:53 07/30/20 10:53 07/30/20 10:53 - Physical Exam General Appearance: Yes: Nourished, Appropriately Dressed, Apparent Distress Respiratory/Chest: positive: Chest Tender, Lungs Clear, Normal Breath Sounds, Accessory Muscle Use Cardiovascular: positive: Regular Rhythm, Regular Rate. negative: JVD, Murmur Gastrointestinal/Abdominal: positive: Normal Bowel Sounds, Tender (LLQ, RLQ), Flat, Soft. negative: Organomegaly, Distended, Guarding, Rebound Musculoskeletal: positive: Normal Inspection. negative: CVA Tenderness Extremity: positive: Normal Inspection. negative: Tender Integumentary: positive: Normal Color, Dry, Warm Neurologic: positive: Fully Oriented, Alert, Normal Mood/Affect, Normal Response <Howie Hurtado - Last Filed: 07/30/20 13:53> ED Treatment Course - LABORATORY CBC & Chemistry Diagram: 07/30/20 12:00 07/30/20 12:00 - ADDITIONAL ORDERS Additional order review: Laboratory Results 07/30/20 07/30/20 12:00 12:00 Sodium 136 Potassium 4.0 Chloride 104 Carbon Dioxide 25 Anion Gap 7 L BUN 4.5 L Creatinine 0.6 Est GFR (CKD-EPI)AfAm 144.78 Est GFR (CKD-EPI)NonAf 124.92 Random Glucose 84 Calcium 9.4 Total Bilirubin 0.8 AST 16 Alkaline Phosphatase 100 Total Protein 7.9 Albumin 3.8 Urine Color Yellow Urine Appearance Clear Urine pH 7.0 D Ur Specific [place] 1.023 Urine Protein Negative Urine Glucose (UA) Negative Urine Ketones 3+ H Urine Blood Negative Urine Nitrite Negative Urine Bilirubin Negative Urine Urobilinogen 1.0 Ur Leukocyte Esterase Negative 07/30/20 12:00 RBC 4.76 MCV 86.3 MCHC 33.3 RDW 15.6 MPV 10.0 Neutrophils % 73.3 Lymphocytes % 18.7 Monocytes % 6.6 Eosinophils % 1.0 Basophils % 0.4 - RADIOLOGY Radiology Studies Ordered: Category Date Time Status TRANSVAGINAL US PREG [US] Stat Ultrasound 07/30/20 11:37 Completed - Medications Given in the ED: ED Medications Discontinued Medications Generic Name Dose Route Start Last Admin Trade Name Marichuy PRN Reason Stop Dose Admin Acetaminophen 1,000 mg 07/30/20 11:46 07/30/20 12:56 Ofirmev Injection - IVPB 07/30/20 11:47 1,000 mg ONCE ONE Administration Ondansetron HCl 4 mg 07/30/20 11:46 07/30/20 12:56 Zofran Injection IVPUSH 07/30/20 11:47 4 mg ONCE ONE Administration Sodium Chloride 1,000 ml 07/30/20 11:46 07/30/20 12:56 Normal Saline - IV 07/30/20 11:47 1,000 ml ONCE ONE Administration <Emerita Buckley - Last Filed: 07/30/20 13:49> - LABORATORY CBC & Chemistry Diagram: 07/30/20 12:00 07/30/20 12:00 <Howie Hurtado - Last Filed: 07/30/20 13:53> Medical Decision Making - Medical Decision Making 07/30/20 12:12 5 y.o. F PMHx asthma. Patient presenting due to abdominal pain for 2 days and (+) home test. DDx: , ovarian torsion, appendicitis, PID, viral enteritis Labs: WNL, Beta hCG 21,200 UA: 3+ ketones Abd US: Single, live intrauterine , age 5 weeks and 5 days Dispo: d/c home 07/30/20 13:52 07/30/20 13:52 <Howie Hurtado - Last Filed: 07/30/20 13:53> Discharge - Discharge Information Problems reviewed: Yes - Admission No <Emerita Buckley - Last Filed: 07/30/20 13:49> - Discharge Information Problems reviewed: Yes - Admission No <Howie Hurtado - Last Filed: 07/30/20 13:53> - Discharge Information Clinical Impression/Diagnosis: Nausea and vomiting during prior to 22 weeks gestation Condition: Improved Disposition: HOME - Follow up/Referral Referrals: Nuzhat Heath MD [Staff Physician] - Annabelle Bloom MD [Staff Physician] - Jayme Kingston MD [Staff Physician] - - Patient Discharge Instructions Patient Printed Discharge Instructions: Common Discomforts and Bodily Changes During Additional Instructions: Discharge Instructions: You were seen in the emergency department for nausea and vomiting during . Your blood tests did not show any abnormalities, and your symptoms improved with medications. Your ultrasound showed a normal at 5 weeks, 5 days gestation. Home Care and Follow Up: - Vomiting in early is common and is often not a cause for concern. - Eat small, frequent meals throughout the day. Consider keeping crackers or a small snack near your bed to eat as soon as you get up in the morning. - Make sure you are drinking plenty of fluids and staying well hydrated - A combination of vitamin B6 and doxylamine (brand name Unisom) is very effective for nausea/vomiting in . These are available over the counter. You may take 25mg vitamin B6 daily along with of a Unisom tablet (12.5mg). Please be aware that Unisom will make you sleepy; be careful driving after taking this medication. - Call your mosaic layer to schedule a follow up appointment within the next 1-2 weeks. If you need a new mosaic layer, you have been given contact information for Dr Heath, Dr Kingston or Dr Bloom. - Seek immediate care if you have worsening symptoms, you are unable to keep down any food, you become dehydrated (stop urinating), you have any vaginal bleeding, or you have any other medical emergency. - Post Discharge Activity
[2020-07-30 12:39] LABS: BASO % 0.4 % (0-2.0); HEMATOCRIT 41.1 % (32.4-45.2); HEMOGLOBIN 13.7 GM/dL (10.7-15.3); LYMPH % 18.7 % (8-40); MCH 28.8 pg (25.7-33.7); MCHC 33.3 g/dl (32.0-36.0); MEAN CELL VOLUME 86.3 fl (80-96); MONO % 6.6 % (3.8-10.2); NEUT % 73.3 % (42.8-82.8); PLATELET COUNT 229 K/MM3 (134-434); RBC 4.76 M/mm3 (3.60-5.2); RDW 15.6 % (11.6-15.6); WHITE BLOOD COUNT 9.9 K/mm3 (4.0-10.0)
--- NOTE | 2020-07-30 12:40 | PDOC ---
Documentation entered by Balbina Cespedes SCRIBE, acting as scribe for Selin Mcginnis MD. Selin Mcginnis MD: This documentation has been prepared by the Coy schultz Xhesika, SCRIBE, under my direction and personally reviewed by me in its entirety. I confirm that the documentation accurately reflects all work, treatment, procedures, and medical decision making performed by me. Attending Attestation - Resident Resident Name: Howie Hurtado - ED Attending Attestation I have performed the following: I have examined & evaluated the patient, The case was reviewed & discussed with the resident, I agree w/resident's findings & plan, Exceptions are as noted - HPI HPI: 07/30/20 11:41 The patient is a 25 year old female with a significant PMH of asthma who presents to the emergency department for b/l lower abdominal cramping pain a/w nausea and 3 episodes of nbnb vomiting. Pt states she has not been able to tolerate fluids. Pt states she took a test at home which was positive. Pt states her LMP on 06/17. The patient denies chest pain, shortness of breath, headache and dizziness. Denies fever, chills, cough, diarrhea and constipation. Denies dysuria, frequency, urgency and hematuria. Denies any vaginal bleeding or discharge. Allergies: NKDA PCP: Norberto Carrion - Physicial Exam PE: 07/30/20 12:39 Agree with resident exam - Medical Decision Making 07/30/20 12:39 25yo F approx 5-6wk preg by dates (LMP 06/17) presents to the ED with lower abd pain and positive preg test No abd ttp, no vaginal bleeding. Pt is well appearing T&S in our EMR Rh+ Plan for labs, UA, TVUS, reassess 07/30/20 14:37 Labs wnl TVUS with normal preg at 6w+5d No vomiting in ED Tolerating PO and well appearing Clinically stable for DC home w OB f/u I discussed the physical exam findings, ancillary test results and final diagnoses with the patient. I answered all of the patient's questions. The patient was satisfied with the care received and felt comfortable with the discharge plan and treatment plan. The patient will call their primary care physician within 24 hours to arrange follow-up and will return to the Emergency Department with any new, persistent or worsening symptoms. Discharge - Discharge Information Problems reviewed: Yes Clinical Impression/Diagnosis: Nausea and vomiting during prior to 22 weeks gestation, Abdominal pain, Nausea & vomiting Condition: Improved Disposition: HOME - Follow up/Referral Referrals: Nuzhat Heath MD [Staff Physician] - Annabelle Bloom MD [Staff Physician] - Jayme Kingston MD [Staff Physician] - - Patient Discharge Instructions Patient Printed Discharge Instructions: Common Discomforts and Bodily Changes During Additional Instructions: Discharge Instructions: You were seen in the emergency department for nausea and vomiting during . Your blood tests did not show any abnormalities, and your symptoms improved with medications. Your ultrasound showed a normal at 5 weeks, 5 days gestation. Home Care and Follow Up: - Vomiting in early is common and is often not a cause for concern. - Eat small, frequent meals throughout the day. Consider keeping crackers or a small snack near your bed to eat as soon as you get up in the morning. - Make sure you are drinking plenty of fluids and staying well hydrated - A combination of vitamin B6 and doxylamine (brand name Unisom) is very effective for nausea/vomiting in . These are available over the counter. You may take 25mg vitamin B6 daily along with of a Unisom tablet (12.5mg). Please be aware that Unisom will make you sleepy; be careful driving after taking this medication. - Call your naval architect specialist to schedule a follow up appointment within the next 1-2 weeks. If you need a new naval architect specialist, you have been given contact information for Dr Heath, Dr Kingston or Dr Bloom. - Seek immediate care if you have worsening symptoms, you are unable to keep down any food, you become dehydrated (stop urinating), you have any vaginal bleeding, or you have any other medical emergency. - Post Discharge Activity
[2020-07-30] MEDS ORDERED: ACETAMINOPHEN INJECTION 100 ML IVPB ONE (12:49)
[2020-07-30 13:00] LABS: URINE APPEARANCE CLEAR; URINE BILIRUBIN NEGATIVE (NEGATIVE); URINE COLOR YELLOW; URINE GLUCOSE (UA) NEGATIVE (NEGATIVE); URINE KETONE 3+ (NEGATIVE); URINE LEUK ESTERASE NEGATIVE (NEGATIVE); URINE NITRITE NEGATIVE (NEGATIVE); URINE PROTEIN NEGATIVE (NEGATIVE)
[2020-07-30 13:12] LABS: ALBUMIN 3.8 g/dl (3.4-5.0); BILIRUBIN,TOTAL 0.8 mg/dL (0.2-1); BLOOD UREA NITROGEN 4.5 mg/dL (7-18); CALCIUM 9.4 mg/dL (8.5-10.1); CREATININE 0.6 mg/dL (0.55-1.3); TOT PROT 7.9 g/dl (6.4-8.2)
[2020-07-30 15:35] VITALS: BP 121/67; PULSE 69; TEMP 97.9
== END 2020-07-30 14:46 | disposition home or self-care (01) ==
LOC: JER 10:45
PROC: 3E033NZ Introduction of Analgesics, Hypnotics, Sedatives into Peripheral Vein, Percutaneous Approach (ICD-10-PCS; principal; 2020-07-30)
PROC: 3E033GC Introduction of Other Therapeutic Substance into Peripheral Vein, Percutaneous Approach (ICD-10-PCS; 2020-07-30)
DX: O21.9 Vomiting of pregnancy, unspecified (principal); R10.9 Unspecified abdominal pain; Z3A.22 22 weeks gestation of pregnancy
CPT/HCPCS: 36415; 76817-TC; 80053; 81003; 84702; 85025; 96374; 96375; 99285-25; J0131

== ENCOUNTER 2021-03-14 22:45 | Inpatient (IN) | payer OTHER ==
[2021-03-15] MEDS ORDERED: DEXTROSE 5%-LACTATED RINGERS 1,000 ML IV SCH (00:15)
[2021-03-15 01:42] LABS: BASO % 0.4 % (0-2.0); EOS % 1.1 % (0-4.5); HEMATOCRIT 29.9 % (32.4-45.2); HEMOGLOBIN 9.4 GM/dL (10.7-15.3); LYMPH % 15.4 % (8-40); MCH 23.4 pg (25.7-33.7); MCHC 31.4 g/dl (32.0-36.0); MEAN CELL VOLUME 74.5 fl (80-96); MEAN PLT VOLUME 8.9 fl (7.5-11.1); MONO % 5.8 % (3.8-10.2); NEUT % 77.3 % (42.8-82.8); PLATELET COUNT 265 K/MM3 (134-434); RBC 4.02 M/mm3 (3.60-5.2); RDW 17.3 % (11.6-15.6); WHITE BLOOD COUNT 11.7 K/mm3 (4.0-10.0)
[2021-03-15 02:05] LABS: CALCIUM 8.5 mg/dL (8.5-10.1)
[2021-03-15 02:06] LABS: BLOOD UREA NITROGEN 4.6 mg/dL (7-18)
[2021-03-15 02:07] LABS: INR 1.05 (0.83-1.09); PROTHROMBIN TIME (PATIENT) 12.7 SEC (9.7-13.0)
[2021-03-15 02:10] LABS: ACTIVATED PTT 24.3 SECONDS (25.2-36.5)
[2021-03-15 02:12] VITALS: BMI 29.9
[2021-03-15 02:14] LABS: CREATININE 0.4 mg/dL (0.55-1.3)
[2021-03-15] MEDS ORDERED: OXYTOCIN 30 UNITS in 0.9% NS 30 UNIT/500 ML INFUS.BAG IVPB ONE (08:15)
[2021-03-15] MEDS ORDERED: OXYTOCIN 30 UNITS in 0.9% NS 30 UNIT/500 ML INFUS.BAG IVPB SCH (09:00)
[2021-03-15] MEDS ORDERED: FENTANYL/BUPIVACAINE/NS/PF - PCEA - 50 ML DISP.SYRIN EP ONE (11:36)
[2021-03-15] MEDS ORDERED: NALOXONE HCL 0.4 MG/ML VIAL IVPUSH PRN (13:53)
[2021-03-15] MEDS ORDERED: LIDOCAINE HCL 1% PRESERVATIVE FREE - 30ML VIAL ONE (13:54)
[2021-03-15] MEDS ORDERED: OXYTOCIN 20 UNITS in 0.9% NS 20 UNIT/1,000 ML INFUS.BAG IV ONE ×2 (13:54→16:52)
[2021-03-15] MEDS ORDERED: FENTANYL/BUPIVACAINE/NS/PF - PCEA - 50 ML DISP.SYRIN EP SCH (14:00)
[2021-03-15] MEDS ORDERED: ACETAMINOPHEN 325 MG TABLET (FP) ONE (14:55)
[2021-03-15] MEDS ORDERED: IBUPROFEN 600 MG TABLET (FP) PO ONE (14:55)
[2021-03-15] MEDS: IBUPROFEN 600 MG TABLET (FP) PO PRN ×2 (15:00→19:23)
[2021-03-15] MEDS: ACETAMINOPHEN 325 MG TABLET (FP) PO PRN ×2 (15:00→19:23)
[2021-03-15 15:23] LABS: CORD BASE EXCESS -6.2 mmol/L (0-2); CORD HCO3 17.9 mmHg (20-29); CORD PCO2 32.2 mmHg (30-78); CORD pH 7.363 (7.14-7.44)
[2021-03-15 15:25] LABS: CORD BASE EXCESS -8.9 mmol/L (0-2); CORD HCO3 18.4 mmHg (20-29); CORD PCO2 44.2 mmHg (30-78); CORD pH 7.237 (7.14-7.44)
[2021-03-15] MEDS ORDERED: METHYLERGONOVINE MALEATE 0.2 MG/1 ML AMP IM PRN (16:28)
[2021-03-15] MEDS ORDERED: BISACODYL 10 MG SUPP.RECT RC PRN (16:28)
[2021-03-15] MEDS ORDERED: BENZOCAINE 28 GM HEMORRHOIDAL OINTMENT TP PRN (16:28)
[2021-03-15] MEDS ORDERED: BENZOCAINE 20% 57 GM BOTTLE TP PRN (16:28)
[2021-03-15] MEDS ORDERED: WITCH HAZEL 50% (TUCKS) 40 PAD/JAR PAD TP PRN (16:28)
[2021-03-15] MEDS ORDERED: OXYTOCIN 20 UNITS in 0.9% NS 20 UNIT/1,000 ML INFUS.BAG IV SCH (16:30)
[2021-03-15] MEDS: FERROUS SO4 325 MG TABLET (FP) PO SCH (18:03)
[2021-03-16] MEDS: ACETAMINOPHEN 325 MG TABLET (FP) PO PRN ×4 (02:13→21:41)
[2021-03-16] MEDS: IBUPROFEN 600 MG TABLET (FP) PO PRN ×3 (02:13→21:41)
[2021-03-16] MEDS: PRENATAL VITAMINS W/ FOLIC ACID TABLET (FP) PO SCH (09:10)
[2021-03-16] MEDS: FERROUS SO4 325 MG TABLET (FP) PO SCH ×2 (09:10→17:39)
[2021-03-16 09:26] LABS: BASO % 0.4 % (0-2.0); EOS % 2.1 % (0-4.5); HEMATOCRIT 26.4 % (32.4-45.2); HEMOGLOBIN 8.4 GM/dL (10.7-15.3); LYMPH % 12.9 % (8-40); MCHC 31.9 g/dl (32.0-36.0); MEAN CELL VOLUME 75.3 fl (80-96); MEAN PLT VOLUME 9.4 fl (7.5-11.1); MONO % 9.9 % (3.8-10.2); NEUT % 74.7 % (42.8-82.8); PLATELET COUNT 213 K/MM3 (134-434); RBC 3.51 M/mm3 (3.60-5.2); WHITE BLOOD COUNT 9.4 K/mm3 (4.0-10.0)
[2021-03-16] MEDS ORDERED: SENNOSIDES/DOCUSATE COMBO (SENNA PLUS) TABLET (UD) PO PRN (22:00)
[2021-03-17 00:08] VITALS: PULSE 88
[2021-03-17] MEDS: IBUPROFEN 600 MG TABLET (FP) PO PRN (06:03)
[2021-03-17] MEDS: ACETAMINOPHEN 325 MG TABLET (FP) PO PRN (06:03)
[2021-03-17] MEDS: PRENATAL VITAMINS W/ FOLIC ACID TABLET (FP) PO SCH (10:03)
[2021-03-17] MEDS: FERROUS SO4 325 MG TABLET (FP) PO SCH (10:03)
[2021-03-17 10:29] VITALS: BP 126/69; TEMP 98.1
== END 2021-03-17 12:55 | disposition home or self-care (01) | DRG 560 ==
LOC: JDEL 22:45 → JLDR 03-15 00:05 → J3W 03-15 17:30
PROVIDERS: ADMIT Obstetrics & Gynecology; ATTEND Obstetrics & Gynecology
PROC: 10E0XZZ Delivery of Products of Conception, External Approach (ICD-10-PCS; principal; 2021-03-15)
DX: O69.81X0 Labor and delivery complicated by cord around neck, without compression, not applicable or unspecified (principal); O98.52 Other viral diseases complicating childbirth; U07.1 COVID-19; O90.81 Anemia of the puerperium; D64.9 Anemia, unspecified; Z3A.39 39 weeks gestation of pregnancy; Z37.0 Single live birth
CPT/HCPCS: 36415; 36600; 59409; 80048; 82803; 85025; 85610; 85730; 86780; 86850; 86900; 86901; C9803; U0003; U0005

== ENCOUNTER 2021-08-19 19:34 | Emergency (ER) | payer OTHER ==
[2021-08-19 19:39] VITALS: BP 122/78; PULSE 90; TEMP 98.3; BMI 29.2
[2021-08-19] MEDS ORDERED: IBUPROFEN 600 MG TABLET (FP) PO ONE ×2 (20:22→20:26)
== END 2021-08-19 20:50 | disposition home or self-care (01) ==
LOC: JERFT 19:34
DX: S63.502A Unspecified sprain of left wrist, initial encounter (principal); S43.401A Unspecified sprain of right shoulder joint, initial encounter; S93.401A Sprain of unspecified ligament of right ankle, initial encounter; V49.40XA Driver injured in collision with unspecified motor vehicles in traffic accident, initial encounter
CPT/HCPCS: 73110-TC-LT-FY; 73130-TC-LT-FY; 99283-25

== ENCOUNTER 2022-02-25 07:06 | Day surgery (SDC) | payer OTHER ==
[2022-02-25] MEDS ORDERED: ACETAMINOPHEN 1000 MG/100 ML BAG IVPB ONE (08:18)
[2022-02-25] MEDS ORDERED: SODIUM CHLORIDE 0.9% 500 ML INFUS.BAG IV ONE (08:18)
[2022-02-25] MEDS ORDERED: ONDANSETRON 4 MG/2 ML VIAL IVPUSH ONE ×2 (08:19→10:54)
[2022-02-25] MEDS ORDERED: ACETAMINOPHEN INJECTION 100 ML IVPB ONE (08:24)
[2022-02-25] MEDS ORDERED: ONDANSETRON 4 MG/2 ML VIAL ONE ×2 (08:25→11:25)
[2022-02-25 08:41] LABS: EPI CELLS >36 /uL (0-25.1); HCG,QUALITATIVE URINE Negative; HYALINE CASTS 1 /uL (0-3.1); PH,URINE 5.5 (5.0-8.0); URINE APPEARANCE CLEAR; URINE BACTERIA 935 /uL (0-1359); URINE BILIRUBIN NEGATIVE (NEGATIVE); URINE COLOR YELLOW; URINE GLUCOSE (UA) NEGATIVE (NEGATIVE); URINE KETONE NEGATIVE (NEGATIVE); URINE LEUK ESTERASE TRACE (NEGATIVE); URINE NITRITE NEGATIVE (NEGATIVE); URINE PROTEIN NEGATIVE (NEGATIVE); URINE RBC 19 /uL (0-23.9); URINE UROBILINOGEN 0.2 mg/dL (0.2-1.0); URINE WBC 39 /uL (0-25.8)
[2022-02-25 09:40] LABS: BASO % 0.4 % (0-2.0); EOS % 2.5 % (0-4.5); HEMATOCRIT 46.1 % (32.4-45.2); HEMOGLOBIN 15.3 GM/dL (10.7-15.3); LYMPH % 17.4 % (8-40); MCH 29.7 pg (25.7-33.7); MCHC 33.2 g/dl (32.0-36.0); MEAN CELL VOLUME 89.5 fl (80-96); MONO % 5.9 % (3.8-10.2); NEUT % 73.8 % (42.8-82.8); PLATELET COUNT 281 10^3/uL (134-434); RBC 5.15 M/mm3 (3.60-5.2); RDW 14.8 % (11.6-15.6); WHITE BLOOD COUNT 10.7 K/mm3 (4.0-10.0)
[2022-02-25] MEDS ORDERED: FAMOTIDINE 20 MG/50 ML IVPB 20 MG/50 ML MG IVPB ONE ×2 (09:45→10:08)
[2022-02-25] MEDS ORDERED: FAMOTIDINE 10 MG/ML VIAL IVPB ONE (09:53)
[2022-02-25 09:55] LABS: CALCIUM 9.6 mg/dL (8.5-10.1)
[2022-02-25 09:56] LABS: ALBUMIN 4.2 g/dl (3.4-5.0); BLOOD UREA NITROGEN 9.4 mg/dL (7-18)
[2022-02-25 09:59] LABS: BILIRUBIN,TOTAL 0.3 mg/dL (0.2-1); CREATININE 0.6 mg/dL (0.55-1.3); TOT PROT 8.3 g/dl (6.4-8.2)
[2022-02-25] MEDS ORDERED: PIPERACILLIN/TAZOB 4.5 GM 4.5 GM in DEXTROSE 5%-WATER 100 ML IVPB ONE (10:50)
[2022-02-25] MEDS ORDERED: morphine CARPU-JECT 4 MG/1 ML DISP.SYRIN IVPUSH ONE (10:54)
[2022-02-25] MEDS ORDERED: ACETAMINOPHEN 1000 MG/100 ML BAG IVPB PRN ×2 (10:56→23:00)
[2022-02-25] MEDS ORDERED: morphine SULFATE 4 MG/ML VIAL IVPUSH PRN (10:56)
[2022-02-25] MEDS ORDERED: morphine SULFATE 4 MG/ML VIAL ONE (11:25)
[2022-02-25] MEDS ORDERED: PIPERACILLIN/TAZOB 4.5 GM 4.5 GM/100 ML BAG IVPB ONE (11:26)
[2022-02-25 11:58] LABS: INR 1.09 (0.83-1.09); PROTHROMBIN TIME (PATIENT) 12.5 SEC (9.7-13.0)
[2022-02-25 12:00] LABS: ACTIVATED PTT 33.7 SECONDS (25.2-36.5)
[2022-02-25] MEDS ORDERED: BUPIVACAINE HCL/PF 0.5% (5MG/ML) 10 ML VIAL ONE (14:06)
[2022-02-25] MEDS ORDERED: MIDAZOLAM HCL 2 MG/2 ML SINGLE DOSE VIAL ONE (15:23)
[2022-02-25] MEDS ORDERED: PROPOFOL 20 ML ONE ×2 (15:37)
[2022-02-25] MEDS ORDERED: ROCURONIUM BROMIDE 50 MG/5 ML SYRINGE ONE (15:39)
[2022-02-25] MEDS ORDERED: NEOSTIGMINE METHYLSULFATE 0.5 MG/ML - 10 ML MDV ONE (16:00)
[2022-02-25] MEDS ORDERED: BUPIVACAINE HCL/PF 0.5% (5 MG/ML) 30 ML VIAL IJ ONE (16:04)
[2022-02-25] MEDS ORDERED: oxyCODONE HCL 5 MG TABLET PO PRN (17:02)
[2022-02-25] MEDS: morphine SULFATE 4 MG/ML VIAL IVPUSH PRN (20:19)
[2022-02-25 23:19] VITALS: BMI 38.9
[2022-02-26] MEDS: KETOROLAC TROMETHAMINE 30 MG/1 ML VIAL IVPUSH SCH ×3 (00:21→09:22)
[2022-02-26] MEDS: morphine SULFATE 4 MG/ML VIAL IVPUSH PRN ×3 (02:58→16:30)
[2022-02-26 07:56] LABS: BASO % 0.3 % (0-2.0); HEMATOCRIT 41.7 % (32.4-45.2); HEMOGLOBIN 14.1 GM/dL (10.7-15.3); LYMPH % 10.4 % (8-40); MCH 29.8 pg (25.7-33.7); MCHC 33.9 g/dl (32.0-36.0); MEAN CELL VOLUME 88.2 fl (80-96); MEAN PLT VOLUME 9.3 fl (7.5-11.1); MONO % 5.3 % (3.8-10.2); PLATELET COUNT 234 10^3/uL (134-434); RBC 4.73 M/mm3 (3.60-5.2); RDW 14.3 % (11.6-15.6); WHITE BLOOD COUNT 14.9 K/mm3 (4.0-10.0)
[2022-02-26 08:10] LABS: BLOOD UREA NITROGEN 6.2 mg/dL (7-18); CALCIUM 8.8 mg/dL (8.5-10.1)
[2022-02-26 08:14] LABS: CREATININE 0.5 mg/dL (0.55-1.3)
[2022-02-26 08:16] LABS: BILIRUBIN,TOTAL 0.7 mg/dL (0.2-1); TOT PROT 6.8 g/dl (6.4-8.2)
[2022-02-26 08:38] LABS: ALBUMIN 3.4 g/dl (3.4-5.0)
[2022-02-26] MEDS ORDERED: CEFTRIAXONE 2 GM in DEXTROSE 5%-WATER 2 GM/100 ML BAG IVPB SCH (10:00)
[2022-02-26] MEDS ORDERED: BUDESONIDE/FORMETEROL FUMARATE 160/4.5 mcg INHALER IH SCH (10:00)
[2022-02-26] MEDS ORDERED: ONDANSETRON 4 MG/2 ML VIAL IVPUSH PRN (12:10)
[2022-02-26 14:56] VITALS: BP 131/71; PULSE 79; TEMP 98.8
[2022-02-26] MEDS ORDERED: GLYCERIN 1 RECTAL SUPPOSITORY, ADULT RC ONE (15:00)
== END 2022-02-26 20:45 | disposition home or self-care (01) ==
LOC: JER 07:06 → JASUSAT 10:56 → SUATTDRO 10:56 → J6S 20:11 → JASUSAT 02-26 20:45
PROVIDERS: ATTEND Internal Medicine
PROC: 3E033GC Introduction of Other Therapeutic Substance into Peripheral Vein, Percutaneous Approach (ICD-10-PCS; principal; 2022-02-25 15:30)
DX: K80.50 Calculus of bile duct without cholangitis or cholecystitis without obstruction (principal)
CPT/HCPCS: 36415; 76705-TC; 80053; 81003; 83690; 84703; 85025; 85610; 85730; 86850; 86900; 86901; 87086; 88304-TC; 93005; 93010; 94760; 99285-25; C9803-CS; U0003; U0005

== ENCOUNTER 2024-02-01 16:47 | Emergency (ER) | payer OTHER ==
[2024-02-01 16:53] VITALS: PULSE 78; BMI 35.4
[2024-02-01] MEDS ORDERED: FAMOTIDINE 10 MG/ML VIAL IVPB ONE (18:20)
[2024-02-01] MEDS ORDERED: ONDANSETRON 4 MG/2 ML VIAL ONE (18:20)
[2024-02-01] MEDS: SODIUM CHLORIDE 0.9% 500 ML INFUS.BAG IV ONE (18:31)
[2024-02-01] MEDS: ONDANSETRON 4 MG/2 ML VIAL IVPUSH ONE (18:31)
[2024-02-01] MEDS: FAMOTIDINE 20 MG/50 ML IVPB 20 MG/50 ML MG IVPB ONE (18:31)
[2024-02-01 18:35] LABS: HEMATOCRIT 46.1 % (32.4-45.2); HEMOGLOBIN 15.1 GM/dL (10.7-15.3); MCH 29.6 pg (25.7-33.7); MCHC 32.7 g/dl (32.0-36.0); MEAN CELL VOLUME 90.5 fl (80-96); MEAN PLT VOLUME 9.7 fl (7.5-11.1); PLATELET COUNT 226 10^3/uL (134-434); RDW 13.8 % (11.6-15.6); WHITE BLOOD COUNT 15.7 K/mm3 (4.0-10.0)
[2024-02-01 18:54] LABS: ALBUMIN 3.7 g/dl (3.4-5.0); BLOOD UREA NITROGEN 9.3 mg/dL (7-18); CALCIUM 9.1 mg/dL (8.5-10.1)
[2024-02-01 18:58] LABS: CREATININE 0.7 mg/dL (0.55-1.3); TOT PROT 7.6 g/dl (6.4-8.2)
[2024-02-01 19:00] LABS: BILIRUBIN,TOTAL 0.9 mg/dL (0.2-1)
[2024-02-01 19:03] LABS: ANISOCYTOSIS 1+; MACROCYTOSIS 0
[2024-02-01 19:54] LABS: URINE APPEARANCE CLEAR; URINE BILIRUBIN NEGATIVE (NEGATIVE); URINE COLOR YELLOW; URINE GLUCOSE (UA) NEGATIVE (NEGATIVE); URINE KETONE 3+ (NEGATIVE); URINE LEUK ESTERASE NEGATIVE (NEGATIVE); URINE NITRITE NEGATIVE (NEGATIVE); URINE PROTEIN TRACE (NEGATIVE)
[2024-02-01] MEDS ORDERED: METOCLOPRAMIDE HCL INJECTION 10 MG/2 ML VIAL ONE (20:17)
[2024-02-01] MEDS: METOCLOPRAMIDE HCL INJECTION 10 MG/2 ML VIAL IVPUSH ONE (20:23)
[2024-02-01 21:07] VITALS: BP 109/62; RESP 18; TEMP 99.6
== END 2024-02-01 22:39 | disposition home or self-care (01) ==
LOC: JER 16:47
PROC: 3E033GC Introduction of Other Therapeutic Substance into Peripheral Vein, Percutaneous Approach (ICD-10-PCS; principal; 2024-02-01)
PROC: 3E033GC Introduction of Other Therapeutic Substance into Peripheral Vein, Percutaneous Approach (ICD-10-PCS; 2024-02-01)
PROC: 3E033GC Introduction of Other Therapeutic Substance into Peripheral Vein, Percutaneous Approach (ICD-10-PCS; 2024-02-01)
DX: R11.2 Nausea with vomiting, unspecified (principal); R19.7 Diarrhea, unspecified; R10.84 Generalized abdominal pain; A08.4 Viral intestinal infection, unspecified
CPT/HCPCS: 36415; 80053; 81003; 83690; 84703; 85025; 87086; 99284-25